=== PATIENT | male | born 1970 | race Caucasian/White ===

== ENCOUNTER 2018-05-08 07:32 | Day surgery (SDC) | payer MEDICARE, OTHER ==
[2018-05-08] MEDS ORDERED: PROPOFOL 40 ML (09:35)
== END 2018-05-08 10:36 | disposition home or self-care (01) ==
LOC: GIL 07:32
DX: K62.5 Hemorrhage of anus and rectum (principal); K64.4 Residual hemorrhoidal skin tags; K64.8 Other hemorrhoids; E11.9 Type 2 diabetes mellitus without complications; I10 Essential (primary) hypertension; E78.5 Hyperlipidemia, unspecified; F20.9 Schizophrenia, unspecified; Z79.84 Long term (current) use of oral hypoglycemic drugs
CPT/HCPCS: 45378; 82962